=== PATIENT | female | born 1950 | race Caucasian/White ===

== ENCOUNTER 2016-10-13 20:49 | Emergency (ER) | payer OTHER ==
[~2016-10-13] VITALS: Ht 160 cm; Wt 68.0 kg
[~2016-10-13 20:49] MED LIST: ASPI-535; BENA20TA65; ESOM20CA; FLUT1DIS22; MULT1TAB59; PRED20 PO
[2016-10-13 20:51] VITALS: Ht 160 cm; Wt 68.0 kg
[2016-10-13] MEDS ORDERED: SOD CHLORIDE 0.9% 1,000 ML IV STA (20:51)
[2016-10-13] MEDS ORDERED: ASPI-664 PO (21:10)
[2016-10-13] MEDS ORDERED: ESOM20CA PO (21:10)
[2016-10-13] MEDS ORDERED: BENA10TA48 PO (21:11)
[2016-10-13] MEDS ORDERED: ADV25050 INHALATION (21:11)
[2016-10-13] MEDS ORDERED: PRED20TA PO (21:12)
[2016-10-13 21:22] LABS: BASOPHIL # 0.1 10^3/ul (0.0-0.1); BASOPHILS % 0.7 % (0.0-2.0); EOSINOPHILS # 0.1 10^3/ul (0.0-0.5); EOSINOPHILS % 0.8 % (0.0-7.0); HEMOGLOBIN 13.9 g/dl (12.0-16.0); LYMPHOCYTES # 1.7 10^3/ul (0.8-2.9); LYMPHOCYTES % 17.7 % (15.0-51.0); MEAN CORPUSCULAR HEMOGLOBIN 30.9 pg (29.0-33.0); MEAN CORPUSCULAR HGB CONC 33.9 g/dl (32.0-37.0); MEAN CORPUSCULAR VOLUME 91.2 fl (82.0-101.0); MEAN PLATELET VOLUME 10.8 fl (7.4-10.4); MONOCYTE # 0.7 10^3/ul (0.3-0.9); MONOCYTES % 7.4 % (0.0-11.0); NEUTROPHIL # 6.9 10^3/ul (1.6-7.5); NEUTROPHILS % 73.4 % (39.0-77.0); PLATELET COUNT 203 10^3/UL (140-440); RED BLOOD COUNT 4.49 10^6/ul (4.20-5.40); RED CELL DISTRIBUTION WIDTH 14.4 % (11.5-14.5); UNCORRECTED WBC 9.4 10^3/ul (4.8-10.8); WHITE BLOOD COUNT 9.4 10^3/ul (4.8-10.8)
[2016-10-13 21:23] LABS: CONDITION 1
[2016-10-13 21:36] LABS: POTASSIUM 3.8 mmol/L (3.5-5.1)
[2016-10-13 21:38] LABS: CREATININE 0.85 mg/dl (0.44-1.00)
[2016-10-13 21:40] LABS: CALCIUM 9.4 mg/dl (8.4-10.2); MAGNESIUM 1.8 mg/dl (1.7-2.5)
[2016-10-13] MEDS ORDERED: MAGNESIUM SULFATE 2 GM/50 ML 50 ML IVPB ONE (22:00)
--- NOTE | 2016-10-13 22:17 | ERD ---
ER Documentation Chief Complaint Date/Time DATE: 10/13/16 TIME: 22:14 Chief Complaint bibr co rapid heart rate was given 6 adenosine pt converted HPI Patient is a 66-year-old female with asthma and hypertension who presents with palpitations. The patient was brought in by ambulance. She had acute onset of palpitations and chest pain 35 minutes prior to coming to the emergency department. Paramedics found her to have SVT and she was given 6 mg of adenosine which converted her to a sinus rhythm. She feels much better now and her symptoms have resolved. She has never had this in the past. Upon review of old medical record she has had various visits to the ER. ROS All systems reviewed and are negative except as per history of present illness. Medications Home Meds Reported Medications Prednisone* (Prednisone*) 20 Mg Tab, 40 MG PO DAILY Y for NEEDED, TAB 10/13/16 Benazepril Hcl* (Benazepril Hcl*) 10 Mg Tablet, 10 MG PO DAILY, #30 TAB 10/13/16 Salmeterol Xinaf/Fluticasone* (Advair*) 250-50 Diskus Inhaler, 1 INH INHALATION BID, #1 INHALER 10/13/16 Esomeprazole Mag Trihydrate (Nexium) 20 Mg Capsule., 20 MG PO DAILY, #30 CAP 10/13/16 Aspirin* (Aspirin* EC) 81 Mg Tablet., 81 MG PO DAILY, TAB 10/13/16 Discontinued Reported Medications Aspirin Ec (Aspir 81) 81 Mg Tablet. 10/24/11 Multivitamins* (Multivitamins*) 1 Tab Tablet 10/24/11 Fluticasone/Salmeterol (Advair 100-50 Diskus) 1 Disk W/Dev Disk.w.dev 08/27/10 Esomeprazole Mag Trihydrate (Nexium) 20 Mg Capsule. 08/27/10 Benazepril Hcl* (Lotensin*) 20 Mg Tablet 08/27/10 Discontinued Scripts Prednisone (Prednisone) 20 Mg Tab, 60 MG PO QAM, #28 TAB Prov:EARLE MCKEE PA-C 12/05/15 Allergies Allergies: Coded Allergies: No Known Drug Allergies (Verified Allergy, Mild, 10/13/16) PMhx/Soc History of Surgery: Yes (ARM,TAHBSO,GALLBLADDER) Anesthesia Reaction: No Hx Neurological Disorder: No Hx Respiratory Disorders: Yes (ASTHMA) Hx Cardiac Disorders: Yes (HTN) Hx Psychiatric Problems: No Hx Miscellaneous Medical Probl: No Hx Alcohol Use: No Hx Substance Use: No Hx Tobacco Use: No Smoking Status: Never smoker FmHx Family History: No diabetes Physical Exam Vitals Vital Signs Date Time Temp Pulse Resp B/P Pulse Ox O2 Delivery O2 Flow Rate FiO2 10/13/16 21:39 103 20 103/55 97 10/13/16 21:13 Nasal Cannula 2 10/13/16 20:51 98.5 103 18 121/82 98 Physical Exam Const: No acute distress Head: Atraumatic Eyes: Normal Conjunctiva ENT: Normal External Ears, Nose and Mouth. Neck: Full range of motion..~ No meningismus. Resp: Clear to auscultation bilaterally Cardio: Tachycardic rate without murmur Abd: Soft, non tender, non distended. Normal bowel sounds Skin: No petechiae or rashes Back: No midline or flank tenderness Ext: No cyanosis, or edema Neur: Awake and alert Psych: Normal Mood and Affect Result Diagram: 10/13/16209910/13/16 2100 Results 24 hrs Laboratory Tests Test 10/13/16 21:00 Anion Gap 15 Basophils # 0.110^3/ul Basophils % 0.7% Blood Morphology Comment Blood Urea Nitrogen 31mg/dl Calcium Level 9.4mg/dl Carbon Dioxide Level 29mmol/L Chloride Level 104mmol/L Creatinine 0.85mg/dl Eosinophils # 0.110^3/ul Eosinophils % 0.8% Free Thyroxine 0.72ng/dl Glucose Level 84mg/dl Hematocrit 41.0% Hemoglobin 13.9g/dl Lymphocytes # 1.710^3/ul Lymphocytes % 17.7% Magnesium Level 1.8mg/dl Mean Corpuscular Hemoglobin 30.9pg Mean Corpuscular Hemoglobin Concent 33.9g/dl Mean Corpuscular Volume 91.2fl Mean Platelet Volume 10.8fl Monocytes # 0.710^3/ul Monocytes % 7.4% Neutrophils # 6.910^3/ul Neutrophils % 73.4% Nucleated Red Blood Cells # 0.010^3/ul Nucleated Red Blood Cells % 0.0/100WBC Platelet Count 77462^3/UL Potassium Level 3.8mmol/L Red Blood Count 4.4910^6/ul Red Cell Distribution Width 14.4% Sodium Level 144mmol/L Thyroid Stimulating Hormone (TSH) Pending White Blood Count 9.410^3/ul Current Medications Medications (Trade) Dose Ordered Sig/Erin Route PRN Reason Start Time Stop Time Status Last Admin Dose Admin Sodium Chloride 1,000 ml @ 1,000 mls/hr Q1H STAT IV 10/13/16 20:51 10/13/16 21:50 10/13/16 21:10 Magnesium Sulfate (Magnesium Sulfate 2 Gm/50 ml) 50 ml @ 25 mls/hr ONCE ONCE IVPB 10/13/16 22:00 10/13/16 23:59 Procedures/MDM EKG read by me: Rate/Rhythm: Sinus tachycardia at a rate of 107 Intervals: Normal Impression: Sinus tachycardia without evidence of ischemia Chest X-ray 1V Interpreted by me: Soft Tissue: No acute abnormalities Bones: No acute abnormalities Mediastinum/Cardiac Silhouette/Lungs: No acute abnormalities Ultrasound right lower leg was negative per radiology. Patient is a 66-year-old female who presents with SVT which is already been treated with adenosine by paramedics. The patient feels much better. Her laboratory studies show a mildly low magnesium at 1.8 and she was given 2 g of magnesium for repletion. Her other electrolytes are normal. Her EKG shows no further arrhythmia or signs of ischemia. I doubt acute coronary syndrome, pneumonia, pneumothorax, pulmonary embolism, or aortic dissection. Ultrasound of the right lower extremity was done and the patient had knee surgery 2 months ago but this was negative for DVT. I believe outpatient management is appropriate but the patient will need close follow-up with her primary doctor within 24-48 hours. She can return to the ER for any worsening symptoms. Departure Diagnosis: Primary Impression: SVT (supraventricular tachycardia) Additional Impression: Tachycardia Condition: Fair Patient Instructions: SVT Referrals: Your doctor Additional Instructions: Llame al doctor MAANA y lina lucia FREDO PARA DENTRO DE 1-2 PRICE.Dgale a la secretaria que nosotros le instruimos hacer esta fredo.Avise o llame si peter condicin se empeora antes de la fredo. Regresa aqui si peor o no mejor. LYN NGUYEN MD Oct 13, 2016 22:16
[2016-10-13 22:24] LABS: THYROID STIMULATING HORMONE 4.88 MIU/L (0.465-4.680)
[2016-10-13 23:14] VITALS: TEMP 98.5
--- NOTE | 2016-10-13 23:17 | RADRPT ---
PROCEDURE: US DVT. CLINICAL INDICATION: Right lower extremity pain and swelling. TECHNIQUE: Multiple longitudinal and transverse images of the right lower extremity veins were obt ained with knott scale and color Doppler imaging. 2D grayscale measurements with compression, color Doppler flow, and augmentation was performed. The calf veins were interrogated as well. COMPARISON: No prior studies are available for comparison. FINDINGS: The right common femoral, superficial femoral and popliteal veins are normally compressible througho ut. Color flow demonstrates normal filling of the vessel. Normal waveforms are visualized and ther e is normal response to augmentation. The calf veins are visualized and are equally unremarkable. IMPRESSION: 1. No evidence of a deep vein thrombosis involving the right lower extremity. RPTAT: HFN .Rajeev Chris MD, Date Time Electronically viewed and signed by .Rajeev Chris MD, MD on 10/13/2016 23:16 .N/
--- NOTE | 2016-10-13 23:18 | RADRPT ---
PROCEDURE: XR Chest. CLINICAL INDICATION: Chest pain. TECHNIQUE: Single frontal chest x-ray. COMPARISON: Chest radiograph 12/05/2015. FINDINGS: The cardiac silhouette remains mildly enlarged. Aortic atherosclerotic vascular calcifications are identified. There are bilateral low lung volumes with vascular crowding and mild bibasilar atelectasis. No pneum othorax, pleural effusion or consolidation is seen. No acute osseous abnormality is noted. IMPRESSION: 1. Similar mild cardiomegaly and aortic atherosclerosis. 2. Low lung volumes with vascular crowding and mild bibasilar atelectasis. RPTAT: HFN .Rajeev Chris MD, MD Date Time Electronically viewed and signed by .Rajeev Chris MD, on 10/13/2016 23:17 .N/
[2016-10-14 00:36] VITALS: BP 106/85; PULSE 94; RESP 18
== END 2016-10-14 00:36 | disposition home or self-care (01) ==
LOC: E/R 20:49
DX: I47.1 Supraventricular tachycardia (principal); I10 Essential (primary) hypertension; J45.909 Unspecified asthma, uncomplicated; Z79.82 Long term (current) use of aspirin
CPT/HCPCS: 36415; 71010; 80048; 83735; 84439; 84443; 85025; 93005; 93971; 96374; 99285; J3475; J7030

== ENCOUNTER 2018-08-14 15:30 | Observation (INO) | END 2018-08-15 18:00 | disposition home or self-care (01) ==

== ENCOUNTER 2019-05-26 06:40 | Emergency (ER) | payer OTHER ==
[~2019-05-26] VITALS: Ht 157.5 cm; Wt 84.0 kg
[~2019-05-26 06:40] MED LIST changes: +ADV25050 INHALATION; -ASPI-535; +ASPI-817 PO; +BENA10TA6 PO; -BENA20TA65; +CARAS GTB; +CYAN500T55 PO; -ESOM20CA; -FLUT1DIS22; +IBUP-1542 PO; +MONT10TA21 PO; -MULT1TAB59; +MULTI PO; +OMEG-80 PO; +PANT40TA4 PO; -PRED20 PO
[2019-05-26 06:45] VITALS: BP 131/70; PULSE 60; RESP 18; Ht 157.5 cm; Wt 84.0 kg
[2019-05-26] MEDS ORDERED: KETOROLAC 60 MG INJ IM STA (07:25)
== END 2019-05-26 08:50 | disposition home or self-care (01) ==
LOC: FTE 06:40
DX: M25.571 Pain in right ankle and joints of right foot (principal); J45.909 Unspecified asthma, uncomplicated; Z79.82 Long term (current) use of aspirin; Z96.651 Presence of right artificial knee joint
CPT/HCPCS: 73610; 96372; 99284; J1885